=== PATIENT | male | born 1985 | race Caucasian/White ===

== ENCOUNTER 2019-01-26 09:34 | Emergency (ER) | payer OTHER ==
[2019-01-26 10:28] VITALS: BP 155/91
--- NOTE | 2019-01-26 11:09 | UC ---
Eye Complaint HPI - HPI Summary HPI Summary: right eye redness x 2 days white discharge, no eye pain , no change in vision sinus pain and pressure x 2 weeks runny nose , nasal congestion , no fever, no chills, - History of Current Complaint Chief Complaint: UCEye Stated Complaint: SINUS CONGESTION,RT EYE COMPLAINT Time Seen by Provider: 01/26/19 10:51 Hx Obtained From: Patient Onset/Duration: Gradual Onset, Lasting Days - 2, Still Present Timing: Constant Severity Initially: Moderate Severity Currently: Moderate Pain Intensity: 3 Location of Injury: Conjunctiva - right Aggravating Factor(s): Nothing Alleviating Factor(s): Nothing Associated Signs And Symptoms: Positive: Drainage (Purulent) - right eye. Negative: Photophobia, Vision Impairment Bilateral, Vision Impairment Right, Vision Impairment Left - Allergies/Home Medications Allergies/Adverse Reactions: Allergies Allergy/AdvReac Type Severity Reaction Status Date / Time No Known Allergies Allergy Verified 01/26/19 10:28 Home Medications: Home Medications Dm/PE/Acetaminophen/Doxylamine [Vicks Dayquil/Nyquil Cold] 1 mis PO ONCE PRN 12/15 [History Confirmed 01/26/19] [place] [facility] Relief 1 drop RIGHT EYE Q1H PRN 01/26/19 [History Confirmed 01/26/19] PMH/Surg Hx/FS Hx/Imm Hx Previously Healthy: Yes - Surgical History Surgical History: Yes Surgery Procedure, Year, and Place: left ankle surgery 2011 - Family History Known Family History: Negative: Diabetes - Social History Alcohol Use: None Substance Use Type: None Smoking Status (MU): Never Smoked Tobacco Review of Systems All Other Systems Reviewed And Are Negative: Yes Constitutional: Positive: Negative Skin: Positive: Negative Eyes: Positive: Drainage, Eye Redness ENT: Positive: Nasal Discharge, Sinus Congestion, Sinus Pain/Tenderness Respiratory: Positive: Cough Cardiovascular: Positive: Negative Gastrointestinal: Positive: Negative Genitourinary: Positive: Negative Is Patient Immunocompromised?: No Physical Exam Triage Information Reviewed: Yes Appearance: Well-Appearing, No Pain Distress, Well-Nourished Vital Signs: Initial Vital Signs Temp 97.8 F 01/26/19 10:25 Pulse 71 01/26/19 10:25 Resp 18 01/26/19 10:25 BP 155/91 01/26/19 10:25 Pulse Ox 98 01/26/19 10:25 Vital Signs Reviewed: Yes Eye Exam: Normal Eyes: Positive: Conjunctiva Inflamed - right eye, Discharge - right eye ENT: Positive: Normal ENT inspection, Hearing grossly normal, Pharyngeal erythema, Nasal congestion, Nasal drainage, TMs normal, Sinus tenderness. Negative: TM bulging, Tonsillar swelling, Tonsillar exudate Neck exam: Normal Neck: Positive: Supple, Nontender, No Lymphadenopathy Respiratory: Positive: Chest non-tender, Lungs clear, Normal breath sounds Cardiovascular: Positive: RRR, No Murmur Eye Complaint Course/Dx - Differential Dx/Diagnosis Provider Diagnosis: Sinusitis, Conjunctivitis, right eye Discharge - Sign-Out/Discharge Documenting (check all that apply): Patient Departure All imaging exams completed and their final reports reviewed: No Studies - Discharge Plan Condition: Stable Disposition: HOME Prescriptions: Amoxicillin/Clavulanate TAB* [Augmentin TAB 875*] 875 mg PO BID #20 tab Tobramycin 0.3% OPHTH.DELILAH* 1 drop RIGHT EYE Q4H #1 btl Patient Education Materials: Sinusitis (ED), Conjunctivitis (ED) Referrals: No Primary Care Phys,NOPCP [Primary Care Provider] - If Needed - Billing Disposition and Condition Condition: STABLE Disposition: Home
== END 2019-01-26 11:07 | disposition home or self-care (01) ==
LOC: UCCORT 09:34
DX: J32.9 Chronic sinusitis, unspecified (principal); H10.9 Unspecified conjunctivitis
CPT/HCPCS: 99202; G0463

== ENCOUNTER 2019-06-08 17:46 | Emergency (ER) | payer OTHER ==
[2019-06-08 18:02] VITALS: BP 128/88
[2019-06-08] MEDS ORDERED: Tetan/Diph/Pertus SYR(Tdap)* 0.5 ML SYR(BOOSTRIX) use SYR contains LATEX IM ONE (18:09)
--- NOTE | 2019-06-08 18:34 | UC ---
General HPI - HPI Summary HPI Summary: PT HERE FOR SUTURE REMOVAL FROM L SIDE OF JAW.HAD THEM PLACED IN JEANETTE AT WELL NOW 1/2 DAYS AGO. DENIES BANG, JAW PAIN AND MALOCCLUSION PLUS DENTAL FX'S. NEEDS A TETANUS SHOT. - History of Current Complaint Chief Complaint: Jonnathan Stated Complaint: SUTURE REMOVAL Time Seen by Provider: 06/08/19 18:19 Hx Obtained From: Patient Pain Intensity: 0 - Allergy/Home Medications Allergies/Adverse Reactions: Allergies Allergy/AdvReac Type Severity Reaction Status Date / Time No Known Allergies Allergy Verified 06/08/19 18:03 Home Medications: Home Medications NK [No Home Medications Reported] 06/08/19 [History Confirmed 06/08/19] PMH/Surg Hx/FS Hx/Imm Hx Previously Healthy: Yes - Surgical History Surgical History: Yes Surgery Procedure, Year, and Place: left ankle surgery 2011 - Family History Known Family History: Positive: Non-Contributory Negative: Diabetes - Social History Alcohol Use: None Substance Use Type: None Smoking Status (MU): Never Smoked Tobacco Review of Systems All Other Systems Reviewed And Are Negative: No Constitutional: Negative: Fever Skin: Negative: Rash Musculoskeletal: Negative: Edema Physical Exam Triage Information Reviewed: Yes Appearance: Well-Appearing Vital Signs: Initial Vital Signs Temp 98.3 F 06/08/19 17:58 Pulse 71 06/08/19 17:58 Resp 16 06/08/19 17:58 BP 128/88 06/08/19 17:58 Pulse Ox 99 06/08/19 17:58 Vital Signs Reviewed: Yes Eyes: Positive: Conjunctiva Clear Dental: Positive: Other: - NO MALOCCLUSION Neck: Positive: Supple Neurological: Positive: Alert Psychological: Positive: Normal Response To Family, Age Appropriate Behavior Skin Exam: Normal, Other - 4 STITCHES L SIDE OF JAW. NO ERYTHEMA OR SWELLING. SOME SCAB HAS FORMED OVER THE STITCHES. Course/Dx - Course Course Of Treatment: 4 STITCHES REMOVED. SOME SCANT BLEEDING FROM STITCH WITH OVER LYING SCAB. PT TOLERATED WELL. - Diagnoses Provider Diagnosis: Visit for suture removal Discharge - Sign-Out/Discharge Documenting (check all that apply): Patient Departure All imaging exams completed and their final reports reviewed: No Studies - Discharge Plan Condition: Stable Disposition: HOME Patient Education Materials: Stitches Removal (ED) Referrals: No Primary Care Phys,NOPCP [Primary Care Provider] - Additional Instructions: FOLLOW UP NEEDED. YOU MAY RETURN HERE FOR ANY CONCERNS. - Billing Disposition and Condition Condition: STABLE Disposition: Home
== END 2019-06-08 18:40 | disposition home or self-care (01) ==
LOC: UCCORT 17:46
DX: Z48.02 Encounter for removal of sutures (principal)
CPT/HCPCS: 90471; 90715; 99211; G0463

== ENCOUNTER 2019-07-06 18:15 | Emergency (ER) | payer OTHER ==
[2019-07-06 19:06] VITALS: BP 143/79
--- NOTE | 2019-07-06 19:59 | UC ---
Lower Extremity/Ankle HPI - HPI Summary HPI Summary: Pt presents with c/o sudden onset of left great toe pain, swelling and erythema that began 3 days ago. Pt denies drinking alcohol, eating cold cuts, processed meat, or seafood. Pt denies hx of gout. Pt denies injury or infection. Pt also c/o PND frontal sinus pain, and nasal congestion. Pt thinks he has gout and sinusitis. Pt has been taking ibuprofen and drinking water and toe pain, swelling and redness has improved since onset. - History of Current Complaint Chief Complaint: UCLowerExtremity Stated Complaint: RT FOOT PAIN,SINUS COMPLAINT Time Seen by Provider: 07/06/19 19:45 Hx Obtained From: Patient Onset/Duration: Sudden Onset, Lasting Days, Still Present Severity Initially: Moderate Severity Currently: Moderate Pain Intensity: 7 Aggravating Factor(s): Standing, Ambulation Alleviating Factor(s): Rest Able to Bear Weight: Yes - painful - Risk Factors Gout Risk Factors: Male DVT Risk Factors: Negative Septic Arthritis Risk Factor: Negative - Allergies/Home Medications Allergies/Adverse Reactions: Allergies Allergy/AdvReac Type Severity Reaction Status Date / Time No Known Allergies Allergy Verified 07/06/19 19:06 Home Medications: Home Medications Ibuprofen 800 mg PO ONCE PRN 07/06/19 [History Confirmed 07/06/19] PMH/Surg Hx/FS Hx/Imm Hx Previously Healthy: Yes - Surgical History Surgical History: Yes Surgery Procedure, Year, and Place: left ankle surgery 2011 - Family History Known Family History: Positive: Non-Contributory Negative: Diabetes - Social History Occupation: Employed Full-time Lives: With Family Alcohol Use: Rare Substance Use Type: None Smoking Status (MU): Former Smoker Type: Smokeless Tobacco Amount Used/How Often: chewed for 10 yrs Have You Smoked in the Last Year: No - Immunization History Vaccination Up to Date: Yes Review of Systems All Other Systems Reviewed And Are Negative: Yes Constitutional: Positive: Negative Skin: Positive: Negative Eyes: Positive: Negative ENT: Positive: Sinus Congestion, Sinus Pain/Tenderness Respiratory: Positive: Negative Cardiovascular: Positive: Negative Gastrointestinal: Positive: Negative Genitourinary: Positive: Negative Motor: Positive: Decreased ROM - pain with Musculoskeletal: Positive: Myalgia Neurological: Positive: Headache Psychological: Positive: Negative Is Patient Immunocompromised?: No Physical Exam Triage Information Reviewed: Yes Vital Signs: Initial Vital Signs Temp 97.7 F 07/06/19 18:57 Pulse 72 07/06/19 18:57 Resp 14 07/06/19 18:57 BP 143/79 07/06/19 18:57 Pulse Ox 100 07/06/19 18:57 Vital Signs Reviewed: Yes Eye Exam: Normal ENT: Positive: Nasal congestion, Sinus tenderness Dental Exam: Normal Neck exam: Normal Respiratory Exam: Normal Respiratory: Positive: No respiratory distress Musculoskeletal: Positive: Edema @ - left great toe at the metatarsal phalangeal joint Neurological Exam: Normal Psychological Exam: Normal Skin Exam: Other - mild erythema left great Lower Extremity Course/Dx - Differential Dx/Diagnosis Differential Diagnosis/HQI/PQRI: Bursitis, Gout, Sprain, Strain Provider Diagnosis: Sinusitis, Gout Discharge ED - Sign-Out/Discharge Documenting (check all that apply): Patient Departure All imaging exams completed and their final reports reviewed: No Studies - Discharge Plan Condition: Stable Disposition: HOME Prescriptions: Amoxicillin PO (*) [Amoxicillin 875 MG (*)] 875 mg PO Q12H #20 tab Fexofenadine/Pseudoephedrine [Latesha-D 24 Hour Tablet] 1 each PO DAILY #7 tab.er.24h Patient Education Materials: Sinusitis (ED), Low Purine Diet (ED), Gout (ED) Referrals: [facility] [[facility]] - If Needed No Primary Care Phys,NOPCP [Primary Care Provider] - - Billing Disposition and Condition Condition: STABLE Disposition: Home
== END 2019-07-06 20:11 | disposition home or self-care (01) ==
LOC: UCCORT 18:15
DX: J32.9 Chronic sinusitis, unspecified (principal); M10.9 Gout, unspecified; Z87.898 Personal history of other specified conditions
CPT/HCPCS: 99212; G0463